=== PATIENT | female | born 1955 | race Caucasian/White ===

== ENCOUNTER 2016-07-21 20:34 | Emergency (ER) | payer MEDICAID ==
[~2016-07-21] VITALS: Ht 162.6 cm; Wt 90.9 kg
[2016-07-21] MEDS ORDERED: SODIUM CHLORIDE 0.9%, 500ML IVBOLUS ONE (21:30)
[2016-07-21] MEDS ORDERED: NITROGLYCERIN SINGLE TAB 0.4 MG SL PRN (21:30)
[2016-07-21] MEDS ORDERED: METOCLOPRAMIDE 5 MG/ML, 2ML IVPush ONE (21:30)
[2016-07-21] MEDS ORDERED: DIPHENHYDRAMINE 50 MG/ML, 1ML IVPush ONE (21:30)
[2016-07-21] MEDS ORDERED: HYDR25CA94 PO (21:31)
[2016-07-21] MEDS ORDERED: CHOL20002 PO (21:31)
[2016-07-21] MEDS ORDERED: OXYB10TA PO (21:31)
[2016-07-21] MEDS ORDERED: TRIA5PAS4 HOMEMISC (21:31)
[2016-07-21] MEDS ORDERED: PROP40TA PO (21:31)
[2016-07-21] MEDS ORDERED: CYCL-259 PO (21:31)
[2016-07-21] MEDS ORDERED: QUET50TA8 PO (21:31)
[2016-07-21] MEDS ORDERED: LEVO75TA5 PO (21:31)
[2016-07-21] MEDS ORDERED: CLON1TAB23 PO (21:31)
[2016-07-21] MEDS ORDERED: LORA10TA62 PO (21:31)
[2016-07-21] MEDS ORDERED: SUCR1TAB26 PO (21:31)
[2016-07-21] MEDS ORDERED: OMEP40CA6 PO (21:31)
[2016-07-21] MEDS ORDERED: ETAN25KI2 SC (21:31)
[2016-07-21] MEDS ORDERED: METOCLOPRAMIDE 5 MG/ML, 2ML ONE (21:32)
[2016-07-21] MEDS ORDERED: DIPHENHYDRAMINE 50 MG/ML, 1ML ONE (21:33)
[2016-07-21] MEDS ORDERED: NITROGLYCERIN SINGLE TAB 0.4 MG SL ONE (21:33)
[2016-07-21 21:52] LABS: ASPARTATE AMINO TRANSFERASE 24 U/L (15-37); BLOOD UREA NITROGEN 14 mg/dL (7-18)
[2016-07-21 22:04] LABS: DIFF TOTAL CELLS COUNTED 100 CELL DIFF
[2016-07-21 22:13] LABS: VERIFY COUNTS? YES
[2016-07-21] MEDS ORDERED: MAALOX/HYOSCYAMINE/LIDOCAINE 45 ML BOTTLE ONE (23:16)
[2016-07-21] MEDS ORDERED: MAALOX/HYOSCYAMINE/LIDOCAINE 45 ML BOTTLE PO ONE (23:30)
[2016-07-22] MEDS ORDERED: OXYcodone/APAP 5/325MG TABLET ONE (00:24)
[2016-07-22] MEDS ORDERED: FAMOTIDINE 20 MG/2 ML ONE ×2 (00:25→00:27)
[2016-07-22] MEDS ORDERED: FAMOTIDINE 20 MG/2 ML IVPush ONE (00:30)
[2016-07-22] MEDS ORDERED: FAMOTIDINE 20 MG TABLET PO ONE (00:30)
[2016-07-22] MEDS ORDERED: OXYcodone/APAP 5/325MG TABLET PO ONE (00:30)
[2016-07-22 00:34] VITALS: BP 161/68
== END 2016-07-22 01:29 | disposition home or self-care (01) ==
LOC: ED 23:37
DX: R10.13 Epigastric pain (principal); R07.89 Other chest pain; E11.9 Type 2 diabetes mellitus without complications
CPT/HCPCS: 36415; 71010; 80053; 83690; 84484; 85025; 93005; 96361; 96374; 96375; 99285; J1200; J2765; J7040; S0028